=== PATIENT | male | born 1965 | race Caucasian/White ===

== ENCOUNTER → 2017-01-08 | Outpatient (CLI) | payer MEDICAID ==
[~2017-01-08] MED LIST: ASPI81TA11 PO; COLA100C PO; HYDR25TA5 PO; LISI10TA3 PO; METF1000 PO; NOVO7030P2 SQ; PERC5TAB12 PO; SPIR25TA PO
[2017-01-08 12:29] LABS: AUTOMATED NEUTROPHIL # 5.9 TH/MM3 (1.8-7.7); BASOPHIL % 0.5 % (0.0-2.0); EOSINOPHIL # 0.2 TH/MM3 (0-0.4); EOSINOPHIL % 3.1 % (0.0-4.0); HEMO FLAGS DIFF FINAL; LYMPH % 14.4 % (9.0-44.0); LYMPHOCYTE # 1.1 TH/MM3 (1.0-4.8); MEAN CELL VOLUME 83.5 FL (80.0-100.0); MEAN CORPUSCULAR HEMOGLOBIN 27.4 PG (27.0-34.0); MEAN CORPUSCULAR HGB CONC 32.9 % (32.0-36.0); MONO % 5.6 % (0.0-8.0); NEUT % 76.4 % (16.0-70.0); PLATELET COUNT 186 TH/MM3 (150-450); RED BLOOD COUNT 5.03 MIL/MM3 (4.50-5.90); RED CELL DISTRIBUTION WIDTH 15.7 % (11.6-17.2); WHITE BLOOD COUNT 7.7 TH/MM3 (4.0-11.0)
[2017-01-08 12:35] LABS: APTT (PATIENT) 25.9 SEC (24.3-30.1); PROTHROMBIN TIME - PATIENT 11.1 SEC (9.8-11.6)
[2017-01-08 12:49] LABS: ANION GAP 8 MEQ/L (5-15); AST (GOT) 36 U/L (15-37); BICARBONATE 26.9 MEQ/L (21.0-32.0); BLOOD UREA NITROGEN 17 MG/DL (7-18); CHLORIDE 99 MEQ/L (98-107); GLOMERULAR FILTRATION RATE 66 ML/MIN (>89); GLUCOSE,FASTING 257 MG/DL (74-99); POTASSIUM 4.4 MEQ/L (3.5-5.1); SODIUM (NA) 134 MEQ/L (136-145)
[2017-01-08 12:50] LABS: ALT (GPT) 84 U/L (12-78)
[2017-01-08 12:53] LABS: ALKALINE PHOSPHATASE 131 U/L (45-117); TOTAL BILIRUBIN ADULT 0.5 MG/DL (0.2-1.0)
== END ==
LOC: CPRE 11:27
PROVIDERS: ATTEND Urology
DX: Z01.810 Encounter for preprocedural cardiovascular examination (principal); Z01.812 Encounter for preprocedural laboratory examination; C64.1 Malignant neoplasm of right kidney, except renal pelvis
CPT/HCPCS: 36415; 80053; 85025; 85610; 85730

== ENCOUNTER 2017-01-15 10:39 | Inpatient (IN) | payer MEDICAID ==
[~2017-01-15] VITALS: Ht 172.7 cm; Wt 134.4 kg
[~2017-01-15 10:39] MED LIST changes: -COLA100C PO; -NOVO7030P2 SQ; -PERC5TAB12 PO
[2017-01-15] MEDS ORDERED: NOVO7030P2 SQ (11:20)
[2017-01-15] MEDS ORDERED: SODIUM CHLORID 0.9% 500 ML IV PRN (11:30)
[2017-01-15] MEDS ORDERED: POVIDONE IODINE 5% (ANTISEPSIS KIT) 4 APPLICATIONS EACH NARE PRN (11:30)
[2017-01-15] MEDS ORDERED: CHLORHEXIDINE GLUCONATE 2 % 1 PACK (2 CLOTHS) TOPICAL PRN (11:30)
[2017-01-15] MEDS ORDERED: ceFAZolin 2 GM PREMIX 50 ML IV SCH (11:30)
[2017-01-15] MEDS ORDERED: INSULIN HUMAN REGULAR 1,000 UNITS/10 ML VIAL SQ PRN (11:30)
[2017-01-15] MEDS ORDERED: METOPROLOL TARTRATE 25 MG TAB PO PRN (11:30)
[2017-01-15] MEDS ORDERED: LACTATED RINGER'S 1000 ML IV PRN (11:30)
[2017-01-15] MEDS ORDERED: VECURONIUM BROMIDE 20 MG VIAL IV ONE (12:00)
[2017-01-15] MEDS ORDERED: LIDOCAINE HCL 1% PF 5 ML AMPULE OTHER ONE (12:00)
[2017-01-15] MEDS ORDERED: NORMOSOL R INJ 2,000 ML IV ONE (12:00)
[2017-01-15] MEDS ORDERED: ROCURONIUM INJ 50 MG/5 ML SYRINGE IV PUSH ONE (12:00)
[2017-01-15] MEDS ORDERED: DEXAMETHASONE SOD PHOS 4 MG/ML VIAL IV ONE (12:00)
[2017-01-15] MEDS ORDERED: SODIUM CHLORID 0.9% 500 ML INJ 500 ML IV ONE (12:00)
[2017-01-15] MEDS ORDERED: MIDAZOLAM HCL 2 MG/2 ML VIAL IV ONE (12:00)
[2017-01-15] MEDS ORDERED: LACTATED RINGER'S 1000 ML INJ 1,000 ML IV ONE (12:00)
[2017-01-15] MEDS ORDERED: STERILE WATER FOR INJECTION 20 ML VIAL IV ONE (12:00)
[2017-01-15] MEDS ORDERED: PHENYLEPH/NS 1000 MCG/10 ML SYR IV ONE (12:00)
[2017-01-15] MEDS ORDERED: SODIUM CHLOR 0.9% 250 ML INJ 500 ML IV ONE (12:00)
[2017-01-15] MEDS ORDERED: PROPOFOL 200 MG/20 ML AMP IV ONE (12:00)
[2017-01-15] MEDS ORDERED: FUROSEMIDE 40 MG/4 ML VIAL ONE (12:23)
[2017-01-15] MEDS ORDERED: ceFAZolin INJ 1,000 MG VIAL ONE (13:40)
[2017-01-15] MEDS ORDERED: VECURONIUM BROMIDE 20 MG VIAL ONE (18:24)
[2017-01-15] MEDS ORDERED: PHENYLEPHRINE HCL 10 MG/ML VIAL ONE (18:25)
[2017-01-15] MEDS ORDERED: SUGAMMADEX SODIUM 200 MG/2 ML VIAL IV PUSH ONE ×2 (19:00)
[2017-01-15 19:10] LABS: BLOOD GAS BASE EXCESS -4.4 mmol/L (-2-2); BLOOD GAS HCO3 22 mmol/L (22-26); BLOOD GAS METHEMOGLOBIN 1.5 % (0-2); BLOOD GAS O2 HGB SATURATION 92 % (90-100); BLOOD GAS OXYGEN CONTENT 16.4 Vol % (12.0-20.0); BLOOD GAS PCO2 54 mmHg (38-42); BLOOD GAS PO2 94 mmHg (61-120); BLOOD GAS TOTAL HGB 12.6 G/DL (12.0-16.0); CRITICAL VALUE YES; DRAW SITE ART LINE; FIO2 50 %; OXYGEN DEVICE VENTILATOR; STAT NO; TEMP CORR TO 98.6; VENT SETTINGS IN OR
[2017-01-15 19:18] LABS: BASOPHIL # 0.1 TH/MM3 (0-0.2); BASOPHIL % 0.5 % (0.0-2.0); EOSINOPHIL # 0.1 TH/MM3 (0-0.4); EOSINOPHIL % 0.4 % (0.0-4.0); HEMATOCRIT 38.3 % (39.0-51.0); HEMO FLAGS DIFF FINAL; LYMPH % 10.9 % (9.0-44.0); LYMPHOCYTE # 2.5 TH/MM3 (1.0-4.8); MEAN CELL VOLUME 84.8 FL (80.0-100.0); MEAN CORPUSCULAR HEMOGLOBIN 27.4 PG (27.0-34.0); MEAN CORPUSCULAR HGB CONC 32.3 % (32.0-36.0); NEUT % 86.2 % (16.0-70.0); PLATELET COUNT 349 TH/MM3 (150-450); RED BLOOD COUNT 4.52 MIL/MM3 (4.50-5.90); RED CELL DISTRIBUTION WIDTH 15.5 % (11.6-17.2); WHITE BLOOD COUNT 23.2 TH/MM3 (4.0-11.0)
[2017-01-15 20:22] LABS: BLOOD GAS CARBOXYHEMOGLOBIN 2.2 % (0-4); BLOOD GAS HCO3 19 mmol/L (22-26); BLOOD GAS METHEMOGLOBIN 1.6 % (0-2); BLOOD GAS O2 HGB SATURATION 93 % (90-100); BLOOD GAS OXYGEN CONTENT 17.4 Vol % (12.0-20.0); BLOOD GAS PCO2 45 mmHg (38-42); BLOOD GAS PO2 106 mmHg (61-120); BLOOD GAS TOTAL HGB 13.2 G/DL (12.0-16.0); TEMP CORR TO 98.6
[2017-01-15 20:23] LABS: CRITICAL VALUE YES; DRAW SITE ART LINE; FIO2 50 %; OXYGEN DEVICE VENTILATOR; STAT YES; VENT SETTINGS PER ANESTHESIA
[2017-01-15] MEDS ORDERED: ALBUMIN HUMAN 5% 12.5 GM/250 ML BOTTLE IV ONE (20:25)
[2017-01-15] MEDS: SODIUM CHLOR 0.9% 1000 ML INJ 1,000 ML IV SCH (21:09)
--- NOTE | 2017-01-15 21:09 | PD.OP ---
Operative Report Date of Surgery: Jan 15, 2017 Preoperative Diagnosis: (1) Renal cell carcinoma of right kidney Postoperative Diagnosis: (1) Renal cell carcinoma of right kidney Procedure: Robot-assisted laparoscopic right radical nephrectomy Anesthesia: General Surgeon: Chester Downey Raise Drill Operator(s): Oc Ortega Operation and Findings: Indication for procedure: The case of a pleasant 51-year-old gentleman with a 5 cm renal mass biopsy-proven to be renal cell carcinoma who presents now to undergo a robot-assisted laparoscopic right radical nephrectomy. Operative procedure in detail: Patient was brought to the operating suite and placed supine on the OR table. He was then placed and general endotracheal anesthesia. He was then repositioned in the left lateral recumbent position and the table was flexed to separate the pelvis from the thorax. The beanbag was then utilized to hold the patient in this position. All pressure points were adequately padded. He was then prepped and draped in normal sterile fashion. After appropriate timeout was undertaken I proceeded with creating a pneumoperitoneum to 15 mmHg pressure utilizing the the Veress needle in standard fashion. I then utilized the visual obturator to place the camera port which was just lateral to the midline due to patient's body habitus. The remaining 3 robotic arm ports, the speech language assistant port and a small liver retractor port were then placed under direct vision. The robot was then docked in standard fashion. At this point time I repositioned myself over at the da Stefanie console and Dr. Ortega remained at the bedside to baking assistant. I then proceeded to mobilize the patient's right colon to expose the retroperitoneum. The inferior pole of the kidney was freed and I continued my dissection in a cephalad direction until the hilar vessels were identified. The hilar vessels with next divided and ligated utilizing the endovascular stapling device. I then utilized the vessel sealer to further mobilize the kidney from its superior lateral attachments. Once the kidney was fully mobilized it was placed in the Endo Catch specimen bag. The pneumoperitoneum was dropped down to 5 mmHg and inspection was made fracture bleeding and none was noted. A 7 mm NATACHA drain was placed to one of the robotic arm ports and the robot was undocked and the remaining ports removed. I re-scrubbed and repositioned myself over at the bedside to complete the case. I next connected the camera port and the speech language assistant port to create one incision and the specimen was removed via this incision. This incision was then closed in 2 layers utilizing #1 PDS suture followed by subcuticular 3-0 chromic and reapproximation of the skin edges with a skin stapling device. The staple device was also utilized to close the remaining to robotic arm ports and the 5 mm liver retraction port site. The NATACHA drain was secured in place with a suture. Sterile dressings were placed over all wound sites. The patient tolerated the procedure without complications post transfer to the PACU in satisfactory condition. Chester Downey MD Jan 15, 2017 21:09
[2017-01-15] MEDS ORDERED: NALOXONE HCL 0.4 MG/ML AMP IV PUSH PRN ×2 (21:15)
[2017-01-15] MEDS ORDERED: SODIUM CHLORIDE 0.9% FLUSH 10 ML FLUSH IV FLUSH PRN (21:15)
[2017-01-15] MEDS: SODIUM CHLORIDE 0.9% FLUSH 10 ML FLUSH IV FLUSH SCH (21:15)
[2017-01-15] MEDS ORDERED: ONDANSETRON HCL 4 MG/2 ML VIAL IV PUSH PRN (21:15)
[2017-01-15] MEDS ORDERED: Post-op Orders (for Pharmacy) MISC XX ONE (21:15)
[2017-01-15] MEDS ORDERED: RESP: ALBUTEROL 2.5 MG/3 ML NEB (SCH) ONE (21:26)
[2017-01-15 21:51] LABS: BLOOD GAS BASE EXCESS -6.5 mmol/L (-2-2); BLOOD GAS CARBOXYHEMOGLOBIN 2.2 % (0-4); BLOOD GAS HCO3 19 mmol/L (22-26); BLOOD GAS METHEMOGLOBIN 1.6 % (0-2); BLOOD GAS O2 HGB SATURATION 90 % (90-100); BLOOD GAS OXYGEN CONTENT 14.1 Vol % (12.0-20.0); BLOOD GAS PCO2 37 mmHg (38-42); BLOOD GAS PO2 77 mmHg (61-120); BLOOD GAS TOTAL HGB 11.1 G/DL (12.0-16.0); CRITICAL VALUE NO; DRAW SITE ART LINE; LITER FLOW 10 L/M; OXYGEN DEVICE SIMPLE MASK; STAT YES; TEMP CORR TO 98.6
[2017-01-15] MEDS: PCA - TOTAL MG DILAUDID DELIVERED PER SHIFT OTHER SCH (22:00)
[2017-01-15 22:10] VITALS: O2SAT 97
[2017-01-15] MEDS ORDERED: DO NOT ADM ANY ANTICOAGULANT DRUGS PRN (22:15)
[2017-01-15] MEDS ORDERED: SODIUM CHLOR 0.9% 1000 ML INJ 1,000 ML IV ONE ×2 (22:30→23:30)
[2017-01-15] MEDS ORDERED: TETRACAINE 0.5% OPTH SOLN 2 ML BTL ONE (22:59)
[2017-01-15] MEDS ORDERED: *morphine SULFATE 8 MG/ML PERIprocedure ONLY ONE (23:09)
[2017-01-15] MEDS ORDERED: TETRACAINE 0.5% OPTH SOLN 4 ML BTL LEFT EYE ONE (23:15)
[2017-01-15] MEDS: HYDROmorphone HCL PCA 6 MG/30 ML IV SCH (23:16)
[2017-01-16] VITALS (14 sets, daily range): BP systolic 103–111; BP diastolic 56–70; PULSE 80–98; RESP 15–21; TEMP 97.2–98.3; O2SAT 94–98
[2017-01-16] MEDS ORDERED: SODIUM CHLOR 0.9% 1000 ML INJ 1,000 ML IV ONE (01:15)
[2017-01-16] MEDS ORDERED: DEXTROSE 50% IN WATER 50 ML VIAL(D50) IV PUSH PRN (02:00)
[2017-01-16] MEDS ORDERED: GLUCAGON 1 MG/ML VIAL OTHER PRN (02:00)
--- NOTE | 2017-01-16 02:08 | PD.CONS ---
HPI Service Critical Care Medicine Consult Requested By Primary Care Physician Maci Redman MD History of Present Illness 51-year-old gentleman with history of diabetes type 2, hypertension, recently diagnosed with a renal mass confirming renal carcinoma, underwent robotic- assisted nephrectomy. Postoperatively in the PACU he was noticed to be hypotensive and is admitted to critical care unit. Review of Systems Constitutional: DENIES: Diaphoretic episodes, Fatigue, Fever, Weight gain, Weight loss, Chills, Dizziness, Change in appetite, Night Sweats Endocrine: DENIES: Heat/cold intolerance, Polydipsia, Polyuria, Polyphagia Eyes: DENIES: Blurred vision, Diplopia, Eye inflammation, Eye pain, Vision loss , Photosensitivity, Double Vision Ears, nose, mouth, throat: DENIES: Tinnitus, Hearing loss, Vertigo, Nasal discharge, Oral lesions, Throat pain, Hoarseness, Ear Pain, Running Nose, Epistaxis, Sinus Pain, Toothache, Odynophagia Respiratory: DENIES: Apneas, Cough, Snoring, Wheezing, Hemoptysis, Sputum production, Shortness of breath Cardiovascular: DENIES: Chest pain, Palpitations, Syncope, Dyspnea on Exertion , PND, Lower Extremity Edema, Orthopnea, Claudication Gastrointestinal: DENIES: Abdominal pain, Black stools, Bloody stools, Constipation, Diarrhea, Nausea, Vomiting, Difficulty Swallowing, Anorexia Genitourinary: DENIES: Sexual dysfunction, Urinary frequency, Urinary incontinence, Urgency, Hematuria, Dysuria, Nocturia, Penile Discharge, Testicular Pain, Testicular Swelling Musculoskeletal: DENIES: Joint pain, Muscle aches, Stiffness, Joint Swelling, Back pain, Neck pain Integumentary: DENIES: Abnormal pigmentation, Nail changes, Pruritus, Rash Hematologic/lymphatic: DENIES: Bruising, Lymphadenopathy Immunologic/allergic: DENIES: Eczema, Urticaria Neurologic: DENIES: Abnormal gait, Headache, Localized weakness, Paresthesias, Seizures, Speech Problems, Tremor, Poor Balance Psychiatric: DENIES: Anxiety, Confusion, Mood changes, Depression, Hallucinations, Agitation, Suicidal Ideation, Homicidal Ideation, Delusions Past Family Social History Allergies: Coded Allergies: No Known Allergies (Unverified , 12/05/16) Past Medical History Hypertension Diabetes mellitus Reported Medications Reported Meds & Active Scripts Active Reported Novolin 70-30 Inj (Insulin Human Isoph/Insulin Regular) 1,000 Unit/10 Ml Vial SQ Aspirin EC (Aspirin) 81 Mg Tabdr 81 Mg PO DAILY Spironolactone 25 Mg Tab 25 Mg PO DAILY Hydrochlorothiazide 25 Mg Tab 25 Mg PO DAILY Lisinopril 10 Mg Tab 10 Mg PO DAILY Metformin (Metformin HCl) 1,000 Mg Tab 1,000 Mg PO BIDPC With meals Active Ordered Medications Current Medications Medications (Trade) Dose Ordered Sig/Penny Route PRN Reason Start Time Stop Time Status Last Admin Dose Admin Sodium Chloride 1,000 ml @ 125 mls/hr Q8H IV 01/15/17 21:09 01/15/17 21:09 Sodium Chloride (NS Flush) 2 ml UNSCH PRN IV FLUSH FLUSH AFTER USING IV ACCESS 01/15/17 21:15 Sodium Chloride (NS Flush) 2 ml BID IV FLUSH 01/15/17 21:15 01/15/17 21:15 Ondansetron HCl (Zofran Inj) 4 mg Q6H PRN IV PUSH NAUSEA 01/15/17 21:15 Cefazolin Sodium 1000 mg/Sodium Chloride 100 ml @ 200 mls/hr Q8H IV 01/16/17 00:00 01/16/17 16:29 01/16/17 00:00 Heparin Sodium (Porcine) (Heparin Inj) 5,000 units Q12H SQ 01/16/17 20:00 Naloxone HCl (Narcan Inj) 0.4 mg UNSCH PRN IV PUSH RESPIRATORY RATE LESS THAN 10 01/15/17 21:15 Hydromorphone HCl (Dilaudid MUTUEL CLERK Inj) 6 mg UNSCH IV 01/15/17 21:15 01/16/17 02:50 MUTUEL CLERK Dosage Infused (Pha) 1 Q8HR OTHER 01/15/17 22:00 Miscellaneous Information ALL NURSING DEPARTME... UNSCH PRN .XX SEE LABEL COMMENTS 01/15/17 22:15 01/16/17 22:14 Dextrose (D50w (Vial) Inj) 50 ml UNSCH PRN IV PUSH HYPOGLYCEMIA-SEE COMMENTS 01/16/17 02:00 Glucagon (Glucagon Inj) 1 mg UNSCH PRN OTHER HYPOGLYCEMIA-SEE COMMENTS 01/16/17 02:00 Insulin Aspart (NovoLOG SUPPLEMENTAL SCALE) 1 ACHS SLIDING SCALE SQ 01/16/17 08:00 Family History No family history significant for coronary artery disease Social History Negative for alcohol or illicit drug abuse Physical Exam Vital Signs Vital Signs Date Time Temp Pulse Resp B/P (MAP) Pulse Ox O2 Delivery O2 Flow Rate FiO2 01/15/17 23:45 88 16 93/52 (66) 95 Nasal Cannula 4 99/68 (78) 01/15/17 23:30 89 19 97/56 (70) 95 Simple Mask 10 99/53 (68) 01/15/17 23:16 19 01/15/17 23:15 83 20 83/47 (59) 95 Simple Mask 10 69/50 (56) 01/15/17 23:00 86 21 87/89 (88) 100 Bi-Pap 50 99/49 (66) 01/15/17 22:45 91 20 95/55 (68) 98 Bi-Pap 50 73/66 (68) 01/15/17 22:30 90 19 94/54 (67) 100 Bi-Pap 50 85/61 (69) 01/15/17 22:15 87 20 93/52 (66) 100 Bi-Pap 50 88/47 (61) 01/15/17 22:10 97 50 01/15/17 22:00 90 15 88/50 (63) 95 Bi-Pap 50 69/58 (62) 01/15/17 21:45 89 21 95/46 (62) 97 Bi-Pap 50 77/44 (55) 01/15/17 21:26 99.3 91 16 86/44 (58) 92 Simple Mask 10 01/15/17 11:28 97.8 77 20 120/87 (98) 96 Physical Exam GENERAL: Well-nourished, well-developed patient. SKIN: Warm and dry. HEAD: Normocephalic. EYES: No scleral icterus. No injection or drainage. Corneal abrasion with a patch on left NECK: Supple, trachea midline. No JVD or lymphadenopathy. CARDIOVASCULAR: Regular rate and rhythm without murmurs, gallops, or rubs. RESPIRATORY: Breath sounds equal bilaterally. No accessory muscle use. GASTROINTESTINAL: Abdomen soft, non-tender, nondistended. MUSCULOSKELETAL: No cyanosis, or edema. BACK: Nontender without obvious deformity. NEURO EXAM: GCS: M V E Mental Status: The patient is alert and oriented to person, place, and time with normal speech. Cranial Nerves: Pupil on the right is round, reactive to light. Extraocular movements are intact without ptosis. Reflexes: Biceps, patellar, and Achilles are 2/4 bilaterally. No clonus. Sensation: Sensation is intact bilaterally to pain and light touch. Two-point discrimination is intact. Motor: Good muscle tone. Strength is 5/5 bilaterally. Laboratory Laboratory Tests Test 01/15/17 18:56 01/15/17 19:55 01/15/17 21:35 White Blood Count 23.2 Red Blood Count 4.52 Hemoglobin 12.4 Hematocrit 38.3 Mean Corpuscular Volume 84.8 Mean Corpuscular Hemoglobin 27.4 Mean Corpuscular Hemoglobin Concent 32.3 Red Cell Distribution Width 15.5 Platelet Count 349 Mean Platelet Volume 9.1 Neutrophils (%) (Auto) 86.2 Lymphocytes (%) (Auto) 10.9 Monocytes (%) (Auto) 2.0 Eosinophils (%) (Auto) 0.4 Basophils (%) (Auto) 0.5 Neutrophils # (Auto) 20.0 Lymphocytes # (Auto) 2.5 Monocytes # (Auto) 0.5 Eosinophils # (Auto) 0.1 Basophils # (Auto) 0.1 CBC Comment DIFF FINAL Differential Comment Blood Gas Puncture Site ART LINE ART LINE ART LINE Blood Gas Patient Temperature 98.6 98.6 98.6 Blood Gas HCO3 22 19 19 Blood Gas Base Excess -4.4 -7.0 -6.5 Blood Gas Oxygen Saturation 92 93 90 Arterial Blood pH 7.23 7.25 7.32 Arterial Blood Partial Pressure CO2 54 45 37 Arterial Blood Partial Pressure O2 94 106 77 Arterial Blood Oxygen Content 16.4 17.4 14.1 Arterial Blood Carboxyhemoglobin 2.0 2.2 2.2 Arterial Blood Methemoglobin 1.5 1.6 1.6 Blood Gas Hemoglobin 12.6 13.2 11.1 Oxygen Delivery Device VENTILATOR VENTILATOR SIMPLE MASK Blood Gas Ventilator Setting IN OR PER ANESTHESIA Blood Gas Inspired Oxygen 50 50 Blood Gas Liter Flow 10 Result Diagram: 01/15/17 3979 Assessment and Plan Assessment and Plan Renal cell carcinoma - Status post nephrectomy - Further per urology Hypertension - Hypotensive postop - Hold home meds lisinopril, hydrochlorothiazide, spironolactone Hypotension - Postoperatively - H&H stable - Improved with and his boluses Diabetes mellitus - Hold metformin while in the ICU - Insulin sliding scale DVT GI prophylaxis - Teds SCDs - Subcutaneous heparin - Pepcid Critical Care: The total critical care time was 35 minutes. Time to perform other separately billable procedures was not included in the critical care time. Chago Salcido MD Jan 16, 2017 2:08 am
[2017-01-16] MEDS ORDERED: SODIUM BICARBONATE 8.4% INJ 50 MEQ/50 ML SYR IV PUSH ONE (02:15)
[2017-01-16] MEDS ORDERED: INSULIN ASPART SUPPLEMENTAL SCALE ONE (02:28)
[2017-01-16] MEDS: INSULIN ASPART SUPPLEMENTAL SCALE SQ SCH ×5 (02:31→21:00)
[2017-01-16] MEDS: HYDROmorphone HCL PCA 6 MG/30 ML IV SCH ×2 (02:50→13:01)
[2017-01-16] MEDS ORDERED: INSULIN ASPART 1,000 UNITS/10 ML VIAL SQ ONE (03:15)
[2017-01-16 04:10] LABS: AUTOMATED NEUTROPHIL # 11.8 TH/MM3 (1.8-7.7); BASOPHIL % 0.2 % (0.0-2.0); EOSINOPHIL % 0.1 % (0.0-4.0); HEMATOCRIT 31.5 % (39.0-51.0); HEMO FLAGS DIFF FINAL; LYMPH % 5.5 % (9.0-44.0); LYMPHOCYTE # 0.7 TH/MM3 (1.0-4.8); MEAN CELL VOLUME 84.6 FL (80.0-100.0); MEAN CORPUSCULAR HEMOGLOBIN 27.4 PG (27.0-34.0); MEAN CORPUSCULAR HGB CONC 32.4 % (32.0-36.0); MONO % 5.5 % (0.0-8.0); NEUT % 88.7 % (16.0-70.0); PLATELET COUNT 171 TH/MM3 (150-450); RED BLOOD COUNT 3.72 MIL/MM3 (4.50-5.90); RED CELL DISTRIBUTION WIDTH 15.3 % (11.6-17.2); WHITE BLOOD COUNT 13.3 TH/MM3 (4.0-11.0)
[2017-01-16 05:08] LABS: BICARBONATE 23.9 MEQ/L (21.0-32.0); MAGNESIUM 1.5 MG/DL (1.5-2.5); POTASSIUM 5.2 MEQ/L (3.5-5.1); TOTAL BILIRUBIN ADULT 0.7 MG/DL (0.2-1.0)
[2017-01-16] MEDS: SODIUM CHLOR 0.9% 1000 ML INJ 1,000 ML IV SCH ×3 (05:09→21:00)
[2017-01-16 05:13] LABS: CALCIUM-PROTEIN CORRECTED 7.3 MG/DL (8.5-10.1)
[2017-01-16] MEDS: PCA - TOTAL MG DILAUDID DELIVERED PER SHIFT OTHER SCH ×3 (06:00→21:01)
[2017-01-16] MEDS: SODIUM CHLORIDE 0.9% FLUSH 10 ML FLUSH IV FLUSH SCH ×2 (09:00→20:58)
--- NOTE | 2017-01-16 09:43 | HHI.PR ---
Subjective Patient symptoms today Postoperative day #1 Resting comfortably Feels hungry Denies flatus or bowel movement Anxious to get out of bed Pain well managed Objective Vital Signs Vital Signs Date Time Temp Pulse Resp B/P (MAP) Pulse Ox O2 Delivery O2 Flow Rate FiO2 01/16/17 06:30 97.5 82 20 103/70 (81) 94 01/16/17 06:00 97.8 77 12 116/56 (76) 94 Nasal Cannula 2 01/16/17 05:00 79 11 108/67 (81) 94 Nasal Cannula 2 01/16/17 04:00 82 16 101/57 (72) 94 Nasal Cannula 2 01/16/17 03:30 80 25 93/51 (65) 99 Nasal Cannula 2 Arterial Line 01/16/17 03:15 76 11 102/56 (71) 97 Nasal Cannula 2 Arterial Line 01/16/17 03:00 80 19 103/58 (73) 95 Nasal Cannula 2 91/63 (72) 01/16/17 02:50 16 01/16/17 02:45 80 19 103/58 (73) 95 Nasal Cannula 2 85/61 (69) 01/16/17 02:30 79 18 94/54 (67) 95 Nasal Cannula 2 87/62 (70) 01/16/17 02:15 79 21 94/52 (66) 94 Nasal Cannula 2 75/63 (67) 01/16/17 02:00 82 14 102/56 (71) 94 Nasal Cannula 2 94/65 (75) 01/16/17 01:45 84 13 97/52 (67) 92 Nasal Cannula 2 98/71 (80) 01/16/17 01:30 83 13 101/55 (70) 92 Nasal Cannula 2 86/66 (73) 01/16/17 01:15 81 14 102/56 (71) 98 Nasal Cannula 2 93/67 (76) 01/16/17 01:00 83 16 104/58 (73) 98 Nasal Cannula 4 97/71 (80) 01/16/17 00:45 82 18 111/55 (73) 96 Nasal Cannula 4 92/67 (75) 01/16/17 00:30 84 19 109/59 (76) 98 Nasal Cannula 4 101/85 (90) 01/16/17 00:15 85 14 105/55 (72) 97 Nasal Cannula 4 95/67 (76) 01/16/17 00:00 87 18 98/56 (70) 95 Nasal Cannula 4 97/69 (78) 01/15/17 23:45 88 16 93/52 (66) 95 Nasal Cannula 4 99/68 (78) 01/15/17 23:30 89 19 97/56 (70) 95 Simple Mask 10 99/53 (68) 01/15/17 23:16 19 01/15/17 23:15 83 20 83/47 (59) 95 Simple Mask 10 69/50 (56) 01/15/17 23:00 86 21 87/89 (88) 100 Bi-Pap 50 99/49 (66) 01/15/17 22:45 91 20 95/55 (68) 98 Bi-Pap 50 73/66 (68) 01/15/17 22:30 90 19 94/54 (67) 100 Bi-Pap 50 85/61 (69) 01/15/17 22:15 87 20 93/52 (66) 100 Bi-Pap 50 88/47 (61) 01/15/17 22:10 97 50 01/15/17 22:00 90 15 88/50 (63) 95 Bi-Pap 50 69/58 (62) 01/15/17 21:45 89 21 95/46 (62) 97 Bi-Pap 50 77/44 (55) 01/15/17 21:26 99.3 91 16 86/44 (58) 92 Simple Mask 10 01/15/17 11:28 97.8 77 20 120/87 (98) 96 Intake & Output 01/16/17 01/16/17 07:00 19:00 Intake Total 8707.1 ml Output Total 2180 ml Balance 6527.1 ml Intake Oral 0 ml IV Total 4207.1 ml Other 4500 ml Output Urine Total 1050 ml Stool Total 0 ml Drainage Total 130 ml Estimated Blood Loss 1000 ml Result Diagram: 01/16/17 0400 01/16/17 0400 Objective Remarks Abdomen soft, nondistended, nontender Wound sites clean and dry NATACHA with small amount serosanguineous drainage Extremities well-perfused, nontender Medications and IVs Current Medications Medications (Trade) Dose Ordered Sig/Penny Route Start Time Stop Time Status Last Admin Sodium Chloride 1,000 ml @ 125 mls/hr Q8H IV 01/15/17 21:09 01/16/17 05:09 (NS Flush) 2 ml UNSCH PRN IV FLUSH 01/15/17 21:15 (NS Flush) 2 ml BID IV FLUSH 01/15/17 21:15 01/15/17 21:15 (Zofran Inj) 4 mg Q6H PRN IV PUSH 01/15/17 21:15 Cefazolin Sodium 1000 mg/Sodium Chloride 100 ml @ 200 mls/hr Q8H IV 01/16/17 00:00 01/16/17 16:29 01/16/17 00:00 (Heparin Inj) 5,000 units Q12H SQ 01/16/17 20:00 (Narcan Inj) 0.4 mg UNSCH PRN IV PUSH 01/15/17 21:15 (Dilaudid HINGING MACHINE OPERATOR Inj) 6 mg UNSCH IV 01/15/17 21:15 01/16/17 02:50 HINGING MACHINE OPERATOR Dosage Infused (Pha) 1 Q8HR OTHER 01/15/17 22:00 Miscellaneous Information ALL NURSING DEPARTME... UNSCH PRN .XX 01/15/17 22:15 01/16/17 22:14 (D50w (Vial) Inj) 50 ml UNSCH PRN IV PUSH 01/16/17 02:00 (Glucagon Inj) 1 mg UNSCH PRN OTHER 01/16/17 02:00 (NovoLOG SUPPLEMENTAL SCALE) 1 ACHS SLIDING SCALE SQ 01/16/17 08:00 Assessment and Plan Assessment and Plan Urologic impression: #1 status post robot-assisted laparoscopic radical nephrectomy #2 hemodynamically stable #3 appreciate assistance from institutional custodian Plan: #1 continue with ICU care and transfer to surgical floor when okay with institutional custodian #2 clear liquid diet #3 out of bed #4 attempt to wean off HINGING MACHINE OPERATOR #5 continue with Iraheta to gravity drainage #6 continue with NATACHA drain #7 check pathology when available Chester Downey MD Jan 16, 2017 09:43
[2017-01-16] MEDS: oxyCODONE/ACETAMINOPHEN 5 MG/325 MG TAB PO PRN ×2 (12:36→20:58)
[2017-01-16] MEDS: HEPARIN SODIUM - SQ 10,000 UNITS/ML VIAL SQ SCH (20:57)
[2017-01-17] VITALS (8 sets, daily range): BP systolic 103–124; BP diastolic 56–75; PULSE 94–108; RESP 17–20; TEMP 97.2–98.6; O2SAT 92–99
[2017-01-17] MEDS: oxyCODONE/ACETAMINOPHEN 5 MG/325 MG TAB PO PRN ×5 (03:39→23:24)
[2017-01-17] MEDS: SODIUM CHLOR 0.9% 1000 ML INJ 1,000 ML IV SCH (05:09)
[2017-01-17] MEDS: HYDROmorphone HCL PCA 6 MG/30 ML IV SCH (05:25)
[2017-01-17] MEDS: PCA - TOTAL MG DILAUDID DELIVERED PER SHIFT OTHER SCH (05:30)
[2017-01-17] MEDS: INSULIN ASPART SUPPLEMENTAL SCALE SQ SCH ×4 (08:00→21:00)
[2017-01-17] MEDS: HEPARIN SODIUM - SQ 10,000 UNITS/ML VIAL SQ SCH (08:12)
[2017-01-17] MEDS: SODIUM CHLORIDE 0.9% FLUSH 10 ML FLUSH IV FLUSH SCH ×2 (08:13→21:00)
--- NOTE | 2017-01-17 11:18 | HHI.CCPN ---
Subjective Remarks/Hospital Course 51-year-old gentleman with history of diabetes type 2, hypertension, recently diagnosed with a renal mass confirming renal carcinoma, underwent robotic- assisted nephrectomy. Postoperatively in the PACU he was noticed to be hypotensive and is admitted to critical care unit. Subjective: 01/17: No acute events overnight. The patient continues on IV ORCHID WORKER Dilaudid. The patient's activity level has been advanced out of bed with assistance, currently ambulating around the ICU. Patient's pain well controlled with VAS 4/ 10. Objective Vital Signs Date Time Temp Pulse Resp B/P (MAP) Pulse Ox O2 Delivery O2 Flow Rate FiO2 01/17/17 08:00 98.3 108 20 114/58 (76) 96 01/17/17 07:00 Room Air 01/16/17 19:00 2.00 01/15/17 23:00 50 Result Diagram: 01/16/1739901/16/17399 Objective Remarks GENERAL: Well-nourished, well-developed patient, in no acute distress. SKIN: Warm and dry. HEAD: Normocephalic. EYES: No scleral icterus. No injection or drainage. Corneal abrasion with a patch on left NECK: Supple, trachea midline. No JVD or lymphadenopathy. CARDIOVASCULAR: Regular rate and rhythm without murmurs, gallops, or rubs. RESPIRATORY: Breath sounds equal bilaterally. No accessory muscle use. GASTROINTESTINAL: Abdomen soft, obese non-tender, nondistended. NATACHA drain right minimal serosanguineous fluid to thumb print suction. Normoactive bowel sounds. Midline abdominal dressing clean dry and intact MUSCULOSKELETAL: No cyanosis, or edema. BACK: Nontender without obvious deformity. NEURO EXAM: GCS: M6 V5 E4 Mental Status: The patient is alert and oriented to person, place, and time with normal speech. Cranial Nerves: Pupil on the right is round, reactive to light. Extraocular movements are intact without ptosis. Reflexes: Biceps, patellar, and Achilles are 2/4 bilaterally. No clonus. Sensation: Sensation is intact bilaterally to pain and light touch. Two-point discrimination is intact. Motor: Good muscle tone. Strength is 5/5 bilaterally. A/P Assessment and Plan Renal cell carcinoma - Status post nephrectomy - Further per urology Hypertension - Hypotensive postop - Hold home meds lisinopril, hydrochlorothiazide, spironolactone Hypotension-resolved - Postoperatively - H&H stable - Improved with and his boluses Diabetes mellitus - Hold metformin while in the ICU - Insulin sliding scale-high dose DVT GI prophylaxis - Teds SCDs - Subcutaneous heparin - Pepcid Dispo: Level 3 Thank you for allowing participation in the care of this patient. Critical care medicine will sign off. Physician Echo Dockery MD Jan 17, 2017 11:18
--- NOTE | 2017-01-17 13:00 | HHI.PR ---
Subjective Patient symptoms today Postoperative day #2 Denies complaints other than being hungry Voiding well Had 3 loose bowel movements Ambulating well Objective Vital Signs Vital Signs Date Time Temp Pulse Resp B/P (MAP) Pulse Ox O2 Delivery O2 Flow Rate FiO2 01/17/17 08:00 98.3 108 20 114/58 (76) 96 01/17/17 08:00 108 01/17/17 07:00 96 Room Air 01/17/17 06:00 102 01/17/17 05:30 18 01/17/17 05:25 18 01/17/17 04:00 97.5 106 18 123/59 (80) 99 01/17/17 02:00 97 01/17/17 00:00 97.2 94 18 103/56 (72) 94 01/17/17 00:00 97 01/16/17 22:00 91 01/16/17 21:01 18 01/16/17 20:00 97.2 98 18 104/60 (75) 96 01/16/17 20:00 98 01/16/17 19:00 96 Nasal Cannula 2.00 01/16/17 19:00 96 Nasal Cannula 2.00 01/16/17 18:00 82 01/16/17 17:17 98.2 90 21 106/58 (74) 96 01/16/17 16:00 90 01/16/17 14:00 86 01/16/17 14:00 16 01/16/17 13:31 16 01/16/17 13:17 98.0 80 15 107/56 (73) 98 01/16/17 13:01 20 Result Diagram: 01/16/1739901/16/170 Objective Remarks Abdomen soft, nondistended, nontender Wound sites clean and dry NATACHA with small amount serosanguineous drainage Extremities well-perfused, nontender Medications and IVs Current Medications Medications (Trade) Dose Ordered Sig/Penny Route Start Time Stop Time Status Last Admin Sodium Chloride 1,000 ml @ 125 mls/hr Q8H IV 01/15/17 21:09 01/17/17 05:09 (NS Flush) 2 ml UNSCH PRN IV FLUSH 01/15/17 21:15 (NS Flush) 2 ml BID IV FLUSH 01/15/17 21:15 01/17/17 08:13 (Zofran Inj) 4 mg Q6H PRN IV PUSH 01/15/17 21:15 (Heparin Inj) 5,000 units Q12H SQ 01/16/17 20:00 01/17/17 08:12 (Narcan Inj) 0.4 mg UNSCH PRN IV PUSH 01/15/17 21:15 (Dilaudid DIRECTOR CAREER SERVICES Inj) 6 mg UNSCH IV 01/15/17 21:15 01/17/17 05:25 DIRECTOR CAREER SERVICES Dosage Infused (Pha) 1 Q8HR OTHER 01/15/17 22:00 01/17/17 05:30 (D50w (Vial) Inj) 50 ml UNSCH PRN IV PUSH 01/16/17 02:00 (Glucagon Inj) 1 mg UNSCH PRN OTHER 01/16/17 02:00 (NovoLOG SUPPLEMENTAL SCALE) 1 ACHS SLIDING SCALE SQ 01/16/17 08:00 01/17/17 08:00 (Percocet 5-325 Mg) 1 tab Q6H PRN PO 01/16/17 10:00 01/17/17 08:48 (Percocet 5-325 Mg) 2 tab Q6H PRN PO 01/16/17 10:00 01/17/17 10:00 Assessment and Plan Assessment and Plan Urologic impression: #1 status post robot-assisted laparoscopic radical nephrectomy #2 progressing well Plan: #1 DC NATACHA drain #2 regular ADA diet #3 encourage ambulation #4 discontinue DIRECTOR CAREER SERVICES #5 check pathology when available #6 probable discharge home tomorrow morning Chester Downey MD Jan 17, 2017 13:00
--- NOTE | 2017-01-17 13:07 | HHI.DS ---
Discharge Summary Admission Date Jan 15, 2017 at 10:39 Discharge Date: Jan 20, 2017 Admitting Diagnosis Renal cell carcinoma right kidney (1) Renal cell carcinoma of right kidney Diagnosis: Principal ICD Codes: C64.1 - Malignant neoplasm of right kidney, except renal pelvis Procedures Robot-assisted laparoscopic right radical nephrectomy Brief History 51-year-old gentleman with biopsy-proven right renal cell carcinoma who was admitted to undergo a robot-assisted laparoscopic radical nephrectomy. Please refer to admission history and physical were additional history and pertinent physical findings. CBC/BMP: 01/16/17 0400 01/16/17 0400 Significant Findings Laboratory Tests Test 01/15/17 18:56 01/15/17 19:55 01/15/17 21:35 01/16/17 04:00 White Blood Count 23.2 TH/MM3 (4.0-11.0) 13.3 TH/MM3 (4.0-11.0) Hemoglobin 12.4 GM/DL (13.0-17.0) 10.2 GM/DL (13.0-17.0) Hematocrit 38.3 % (39.0-51.0) 31.5 % (39.0-51.0) Neutrophils (%) (Auto) 86.2 % (16.0-70.0) 88.7 % (16.0-70.0) Neutrophils # (Auto) 20.0 TH/MM3 (1.8-7.7) 11.8 TH/MM3 (1.8-7.7) Blood Gas Base Excess -4.4 mmol/L (-2-2) -7.0 mmol/L (-2-2) -6.5 mmol/L (-2-2) Arterial Blood pH 7.23 (7.380-7.420) 7.25 (7.380-7.420) 7.32 (7.380-7.420) Arterial Blood Partial Pressure CO2 54 mmHg (38-42) 45 mmHg (38-42) 37 mmHg (38-42) Blood Gas HCO3 19 mmol/L (22-26) 19 mmol/L (22-26) Blood Gas Hemoglobin 11.1 G/DL (12.0-16.0) Red Blood Count 3.72 MIL/MM3 (4.50-5.90) Lymphocytes (%) (Auto) 5.5 % (9.0-44.0) Lymphocytes # (Auto) 0.7 TH/MM3 (1.0-4.8) Blood Urea Nitrogen 26 MG/DL (7-18) Creatinine 2.38 MG/DL (0.60-1.30) Random Glucose 333 MG/DL (74-106) Albumin 2.8 GM/DL (3.4-5.0) Calcium Level 7.0 MG/DL (8.5-10.1) Aspartate Amino Transf (AST/SGOT) 281 U/L (15-37) Alanine Aminotransferase (ALT/SGPT) 239 U/L (12-78) Sodium Level 134 MEQ/L (136-145) Potassium Level 5.2 MEQ/L (3.5-5.1) Estimat Glomerular Filtration Rate 29 ML/MIN (>89) Protein Corrected Calcium 7.3 MG/DL (8.5-10.1) Hospital Course Patient was admitted on January 15 of this year and underwent the surgical procedure outlined above without complications. Immediately postoperatively the patient was noted to be somewhat hypotensive however he did respond well to fluid resuscitation. He was admitted to the ICU for close monitoring due to the labile blood pressure. Remainder of his postoperative course was uneventful. By postop day #2 patient was an voiding well, tolerating oral intake and pain well managed and thus was transferred to the surgical floor. Patient continued to progress well on a daily basis. He was seen by medicine service and advised to hold off on the metformin. His blood pressure medication was also adjusted. He did have serosanguineous drainage from his NATACHA site for several days and by postop day #5 the drainage output was markedly reduced. Also by postop day #5 the patient was tolerating oral intake, ambulating well, pain well managed and his vital signs were stable. The decision was thus made to discharge the patient home. Pt Condition on Discharge: Good Discharge Disposition: Discharge Home Discharge Instructions DIET: Follow Instructions for: Diabetic Diet Activities you can perform: Shower Only-No Bath Activities to avoid: Strenuous Activity, Bathing Chester Downey MD Jan 17, 2017 13:07
[2017-01-17] MEDS ORDERED: PERC5TAB12 PO (13:08)
[2017-01-17] MEDS ORDERED: metFORMIN HCL 500 MG TAB PO SCH (18:00)
[2017-01-18 03:45] VITALS: BP 128/68; PULSE 94; RESP 18; TEMP 97.5; O2SAT 92
[2017-01-18] MEDS: oxyCODONE/ACETAMINOPHEN 5 MG/325 MG TAB PO PRN ×3 (05:58→18:11)
[2017-01-18 07:30] VITALS: BP 136/72; PULSE 90; RESP 18; TEMP 98.2; O2SAT 92
[2017-01-18] MEDS: SODIUM CHLORIDE 0.9% FLUSH 10 ML FLUSH IV FLUSH SCH ×2 (07:50→21:37)
[2017-01-18] MEDS: INSULIN ASPART SUPPLEMENTAL SCALE SQ SCH ×4 (07:50→21:36)
--- NOTE | 2017-01-18 09:34 | HHI.PR ---
Subjective Remarks in no acute distress. pain is fairly controlled. no fever. Objective Vitals Vital Signs Date Time Temp Pulse Resp B/P (MAP) Pulse Ox O2 Delivery O2 Flow Rate FiO2 01/18/17 07:30 98.2 90 18 136/72 (93) 92 01/18/17 03:45 97.5 94 18 128/68 (88) 92 01/17/17 23:45 97.3 94 17 118/64 (82) 92 01/17/17 20:00 98.6 106 18 124/75 (91) 94 01/17/17 18:24 18 01/17/17 15:52 97.8 105 18 103/63 (76) 92 I/O 01/17/17 01/17/17 01/17/17 01/18/17 01/18/17 01/18/17 07:00 15:00 23:00 07:00 15:00 23:00 Intake Total 1230 ml 480 ml 480 ml Balance 1230 ml 480 ml 480 ml Intake Oral 480 ml 480 ml 480 ml IV Total 750 ml # Voids 1 3 5 # Bowel Movements 0 1 0 Result Diagram: 01/16/17 0400 01/16/17 0400 Objective Remarks GENERAL: This is a well-nourished, well-developed patient, in no apparent distress. CARDIOVASCULAR: Regular rate and regular rhythm without murmurs, gallops, or rubs. RESPIRATORY: Clear to auscultation. Breath sounds equal bilaterally. No wheezes , rales, or rhonchi. GASTROINTESTINAL: Abdomen soft, non-tender, nondistended. Normal, active bowel sounds MUSCULOSKELETAL: Extremities without clubbing, cyanosis, or edema. NEURO: Alert & Oriented x4 to person, place, time, situation. Moves all ext x4 Medications and IVs Current Medications Lactated Ringer's 1,000 ml @ 30 mls/hr Q24H PRN IV SEE LABEL COMMENTS Last administered on 01/15/17t 11:49; Start 01/15/17 at 11:30; Stop 01/15/17 at 23:03 ; Status DC Sodium Chloride 500 ml @ 30 mls/hr [id number] PRN IV SEE LABEL COMMENTS; Start at 11:30; Stop 01/15/17 at 23:03; Status DC Metoprolol Tartrate (Lopressor) 25 mg STEM PROCESSING MACHINE OPERATOR PRN PO SEE LABEL COMMENTS; Start 01/15/17 at 11:30; Stop 01/15/17 at 23:03; Status DC Povidone Iodine (Betadine 5% Antisepsis Kit) 1 applic STEM PROCESSING MACHINE OPERATOR PRN EACH NARE SEE LABEL COMMENTS Last administered on 01/15/17 11:49; Start 01/15/17 at 11:30 ; Stop 01/15/17 at 23:03; Status DC Chlorhexidine Gluconate (Chlorhexidine 2% Cloth) 3 pack STEM PROCESSING MACHINE OPERATOR PRN TOPICAL SEE LABEL COMMENTS Last administered on 01/15/17 11:49; Start 01/15/17 at 11:30 ; Stop 01/15/17 at 23:03; Status DC Insulin Human Regular (NovoLIN R INJ) See Protocol Table ... STEM PROCESSING MACHINE OPERATOR PRN SQ SEE PROTOCOL TABLE; Start 01/15/17 at 11:30; Stop 01/15/17 at 23:03; Status DC Cefazolin Sodium/ Dextrose 50 ml @ 100 mls/hr STEM PROCESSING MACHINE OPERATOR IV Last administered on 01/15/17 12:15; Start 01/15/17 at 11:30; Stop 01/15/17 at 23:03; Status DC Furosemide (Lasix Inj) 40 mg STK-MED ONCE .ROUTE ; Start 01/15/17 at 12:23; Stop 01/15/17 at 12:24; Status DC Cefazolin Sodium (Ancef Inj) 1,000 mg STK-MED ONCE .ROUTE Last administered on 01/15/17 16:10; Start 01/15/17 at 13:40; Stop 01/15/17 at 13:41; Status DC Vecuronium [place] (Norcuron 20 Mg Inj) 40 mg STK-MED ONCE .ROUTE ; Start at 18:24; Stop 01/15/17 at 18:25; Status DC Phenylephrine HCl (Neosynephrine Inj) 40 mg STK-MED ONCE .ROUTE ; Start at 18:25; Stop 01/15/17 at 18:26; Status DC Sugammadex Sodium (Bridion Inj) 400 mg STK-MED ONCE IV PUSH ; Start 01/15/17 at 19:00; Stop 01/15/17 at 19:01; Status DC Albumin Human (Albumin 5% Inj) 12.5 gm STK-MED ONCE IV ; Start 01/15/17 at 20:25 ; Stop 01/15/17 at 20:26; Status DC Sodium Chloride 1,000 ml @ 125 mls/hr Q8H IV Last administered on 01/17/17 05 :09; Start 01/15/17 at 21:09; Stop 01/17/17 at 12:57; Status DC Sodium Chloride (NS Flush) 2 ml UNSCH PRN IV FLUSH FLUSH AFTER USING IV ACCESS ; Start 01/15/17 at 21:15 Sodium Chloride (NS Flush) 2 ml BID IV FLUSH Last administered on 01/18/17 07: 50; Start 01/15/17 at 21:15 Ondansetron HCl (Zofran Inj) 4 mg Q6H PRN IV PUSH NAUSEA; Start 01/15/17 at 21: 15 Miscellaneous Information (Post-op Orders (for Pharmacy)) STAT ONCE XX ; Start 01/15/17 at 21:15; Stop 01/15/17 at 21:35; Status DC Cefazolin Sodium 1000 mg/Sodium Chloride 100 ml @ 200 mls/hr Q8H IV Last administered on 01/16/17 18:21; Start 01/16/17 at 00:00; Stop 01/16/17 at 16:29 ; Status DC Heparin Sodium (Porcine) (Heparin Inj) 5,000 units Q12H SQ Last administered on 01/17/17 08:12; Start 01/16/17 at 20:00; Stop 01/17/17 at 12:57; Status DC Naloxone HCl (Narcan Inj) 0.4 mg UNSCH PRN IV PUSH SEE LABEL COMMENTS; Start at 21:15; Stop 01/15/17 at 23:03; Status DC Naloxone HCl (Narcan Inj) 0.4 mg UNSCH PRN IV PUSH RESPIRATORY RATE LESS THAN 10; Start 01/15/17 at 21:15; Stop 01/17/17 at 12:57; Status DC Hydromorphone HCl (Dilaudid MANAGER CAMP Inj) 6 mg UNSCH IV Last administered on 05:25; Start 01/15/17 at 21:15; Stop 01/17/17 at 12:57; Status DC MANAGER CAMP Dosage Infused (Pha) 1 Q8HR OTHER Last administered on 01/17/17 05:30; Start 01/15/17 at 22:00; Stop 01/17/17 at 12:57; Status DC Albuterol Sulfate (Albuterol Neb) 2.5 mg STK-MED ONCE .ROUTE Last administered on 01/15/17 21:26; Start 01/15/17 at 21:26; Stop 01/15/17 at 21:27; Status DC Miscellaneous Information ALL NURSING DEPARTME... UNSCH PRN .XX SEE LABEL COMMENTS; Start 01/15/17 at 22:15; Stop 01/16/17 at 22:14; Status DC Sodium Chloride 1,000 ml @ 0 mls/hr BOLUS ONCE IV ; Start 01/15/17 at 22:30; Stop 01/15/17 at 22:31; Status Cancel Tetracaine HCl (Tetracaine 0.5% Opth Soln) 1 drop ONCE ONCE LEFT EYE Last administered on 01/15/17 23:15; Start 01/15/17 at 23:15; Stop 01/15/17 at 23:16 ; Status DC Morphine Sulfate (*morphine INJ PERIprocedure ONLY) 8 mg STK-MED ONCE .ROUTE Last administered on 01/15/17 23:10; Start 01/15/17 at 23:09; Stop 01/15/17 at 23:10; Status DC Sodium Chloride 1,000 ml @ 999 mls/hr Q1H1M ONCE IV Last administered on 23:30; Start 01/15/17 at 23:30; Stop 01/16/17 at 00:30; Status DC Sodium Chloride 1,000 ml @ 999 mls/hr ONCE ONCE IV Last administered on 23:15; Start 01/16/17 at 01:15; Stop 01/16/17 at 02:15; Status DC Dextrose (D50w (Vial) Inj) 50 ml UNSCH PRN IV PUSH HYPOGLYCEMIA-SEE COMMENTS; Start 01/16/17 at 02:00 Glucagon (Glucagon Inj) 1 mg UNSCH PRN OTHER HYPOGLYCEMIA-SEE COMMENTS; Start 01/16/17 at 02:00 Insulin Aspart (NovoLOG SUPPLEMENTAL SCALE) 1 ACHS SLIDING SCALE SQ Last administered on 01/18/17 07:50; Start 01/16/17 at 08:00 Sodium Bicarbonate (Sodium Bicarbonate 8.4% Inj) 50 meq ONCE ONCE IV PUSH Last administered on 01/16/17 02:15; Start 01/16/17 at 02:15; Stop 01/16/17 at 02:16; Status DC Insulin Aspart (NovoLOG SUPPLEMENTAL SCALE) 20 STK-MED ONCE .ROUTE Last administered on 01/16/17 02:28; Start 01/16/17 at 02:28; Stop 01/16/17 at 02:29 ; Status DC Insulin Aspart (NovoLOG INJ) 20 units ONCE ONCE SQ ; Start 01/16/17 at 03:15; Stop 01/16/17 at 03:16; Status DC Oxycodone/ Acetaminophen (Percocet 5-325 Mg) 1 tab Q6H PRN PO PAIN SCALE 3 TO 5 Last administered on 01/17/17 08:48; Start 01/16/17 at 10:00 Oxycodone/ Acetaminophen (Percocet 5-325 Mg) 2 tab Q6H PRN PO PAIN SCALE 6 TO 10 Last administered on 01/18/17 05:58; Start 01/16/17 at 10:00 Tetracaine HCl (Pontocaine 0.5% Opht Soln) 40 drop STK-MED ONCE .ROUTE ; Start 01/15/17 at 22:59; Stop 01/16/17 at 14:04; Status DC Metformin HCl (Glucophage) 1,000 mg BIDPC PO ; Start 01/17/17 at 18:00; Status UNV A/P Assessment and Plan A/P Renal cell carcinoma - Status post nephrectomy - Further per urology Hypertension - Hypotensive postop - Hold home meds lisinopril, hydrochlorothiazide, spironolactone Hypotension-resolved - Postoperatively - H&H stable - Improved with and his boluses acute kidney injury- repeat renal function today. elevated LFT's - likely due to post-op hypotension repeat the levels today. Diabetes mellitus - Hold metformin while in the ICU - Insulin sliding scale-high dose -will consider resuming 70/30 soon. DVT GI prophylaxis - Teds SCDs - Subcutaneous heparin when ok with Urology. Sana Merlos MD Jan 18, 2017 09:34
--- NOTE | 2017-01-18 09:42 | HHI.PR ---
Subjective Patient symptoms today Postoperative day #3 Patient reports drainage from NATACHA site. Has been relating well. Has been tolerating oral intake well. Objective Vital Signs Vital Signs Date Time Temp Pulse Resp B/P (MAP) Pulse Ox O2 Delivery O2 Flow Rate FiO2 01/18/17 07:30 98.2 90 18 136/72 (93) 92 01/18/17 03:45 97.5 94 18 128/68 (88) 92 01/17/17 23:45 97.3 94 17 118/64 (82) 92 01/17/17 20:00 98.6 106 18 124/75 (91) 94 01/17/17 18:24 18 01/17/17 15:52 97.8 105 18 103/63 (76) 92 Intake & Output 01/18/17 01/18/17 07:00 19:00 Intake Total 960 ml Balance 960 ml Intake Oral 960 ml # Voids 8 # Bowel Movements 1 Result Diagram: 01/16/17 0400 01/16/17 0400 Other Results Pathology report consistent with renal cell carcinoma with negative surgical margins. [id number]. Objective Remarks Abdomen soft, nondistended, nontender Wound sites clean and dry [place] intact. NATACHA site dressing soaked with serosanguineous drainage Extremities well-perfused, nontender Medications and IVs Current Medications Medications (Trade) Dose Ordered Sig/Penny Route Start Time Stop Time Status Last Admin (NS Flush) 2 ml UNSCH PRN IV FLUSH 01/15/17 21:15 (NS Flush) 2 ml BID IV FLUSH 01/15/17 21:15 01/18/17 07:50 (Zofran Inj) 4 mg Q6H PRN IV PUSH 01/15/17 21:15 (D50w (Vial) Inj) 50 ml UNSCH PRN IV PUSH 01/16/17 02:00 (Glucagon Inj) 1 mg UNSCH PRN OTHER 01/16/17 02:00 (NovoLOG SUPPLEMENTAL SCALE) 1 ACHS SLIDING SCALE SQ 01/16/17 08:00 01/18/17 07:50 (Percocet 5-325 Mg) 1 tab Q6H PRN PO 01/16/17 10:00 01/17/17 08:48 (Percocet 5-325 Mg) 2 tab Q6H PRN PO 01/16/17 10:00 01/18/17 05:58 (Glucophage) 1,000 mg BIDPC PO 01/17/17 18:00 UNV Assessment and Plan Assessment and Plan Urologic impression: #1 status post robot-assisted laparoscopic radical nephrectomy #2 progressing well Plan: #1 continue with ADA diet #2 encourage ambulation #3 May shower this morning #4 continue local wound care at site #5 likely discharge tomorrow morning Chester Downey MD Jan 18, 2017 09:42
[2017-01-18 11:41] VITALS: BP 132/80; PULSE 95; RESP 18; TEMP 98.3; O2SAT 94
[2017-01-18 14:01] LABS: ALT (GPT) 204 U/L (12-78); ANION GAP 3 MEQ/L (5-15); AST (GOT) 137 U/L (15-37); BICARBONATE 30.1 MEQ/L (21.0-32.0); BLOOD UREA NITROGEN 25 MG/DL (7-18); CHLORIDE 100 MEQ/L (98-107); GLOMERULAR FILTRATION RATE 38 ML/MIN (>89); POTASSIUM 4.2 MEQ/L (3.5-5.1); SODIUM (NA) 133 MEQ/L (136-145)
[2017-01-18 14:07] LABS: ALKALINE PHOSPHATASE 134 U/L (45-117); TOTAL BILIRUBIN ADULT 0.5 MG/DL (0.2-1.0)
[2017-01-18 16:00] VITALS: BP 152/73; PULSE 100; RESP 18; TEMP 98.1; O2SAT 97
[2017-01-18 19:03] VITALS: BP 156/85; PULSE 95; RESP 18; TEMP 99; O2SAT 93
[2017-01-19] VITALS: BP 117/70; PULSE 92; RESP 16; TEMP 97.1; O2SAT 95
[2017-01-19] MEDS: oxyCODONE/ACETAMINOPHEN 5 MG/325 MG TAB PO PRN ×4 (00:21→18:32)
[2017-01-19 04:00] VITALS: BP 134/71; PULSE 87; RESP 16; TEMP 97.9; O2SAT 95
[2017-01-19 08:41] LABS: POTASSIUM 4.3 MEQ/L (3.5-5.1)
[2017-01-19 09:50] VITALS: BP 120/63; PULSE 88; RESP 20; TEMP 96; O2SAT 93
--- NOTE | 2017-01-19 09:56 | HHI.PR ---
Subjective Remarks in no acute distress. pain is fairly controlled. no new complaints. d/w the RN. Objective Vitals Vital Signs Date Time Temp Pulse Resp B/P (MAP) Pulse Ox O2 Delivery O2 Flow Rate FiO2 01/19/17 04:00 97.9 87 16 134/71 (92) 95 01/19/17 00:00 97.1 92 16 117/70 (86) 95 01/18/17 19:11 18 01/18/17 19:03 99.0 95 18 156/85 (108) 93 01/18/17 16:00 98.1 100 18 152/73 (99) 97 01/18/17 11:41 98.3 95 18 132/80 (97) 94 I/O 01/18/17 01/18/17 01/18/17 01/19/17 01/19/17 01/19/17 07:00 15:00 23:00 07:00 15:00 23:00 Intake Total 480 ml 960 ml 720 ml 480 ml Balance 480 ml 960 ml 720 ml 480 ml Intake Oral 480 ml 960 ml 720 ml 480 ml # Voids 5 4 2 3 # Bowel Movements 0 0 0 Result Diagram: 01/16/17 0400 01/19/17 0637 Objective Remarks GENERAL: This is a well-nourished, well-developed patient, in no apparent distress. CARDIOVASCULAR: Regular rate and regular rhythm without murmurs, gallops, or rubs. RESPIRATORY: Clear to auscultation. Breath sounds equal bilaterally. No wheezes , rales, or rhonchi. GASTROINTESTINAL: Abdomen soft, non-tender, nondistended. Normal, active bowel sounds MUSCULOSKELETAL: Extremities without clubbing, cyanosis, or edema. NEURO: Alert & Oriented x4 to person, place, time, situation. Moves all ext x4 Medications and IVs Current Medications Lactated Ringer's 1,000 ml @ 30 mls/hr Q24H PRN IV SEE LABEL COMMENTS Last administered on 01/15/17t 11:49; Start 01/15/17 at 11:30; Stop 01/15/17 at 23:03 ; Status DC Sodium Chloride 500 ml @ 30 mls/hr [id number] PRN IV SEE LABEL COMMENTS; Start at 11:30; Stop 01/15/17 at 23:03; Status DC Metoprolol Tartrate (Lopressor) 25 mg ACADEMIC AFFAIRS VICE PRESIDENT PRN PO SEE LABEL COMMENTS; Start 01/15/17 at 11:30; Stop 01/15/17 at 23:03; Status DC Povidone Iodine (Betadine 5% Antisepsis Kit) 1 applic ACADEMIC AFFAIRS VICE PRESIDENT PRN EACH NARE SEE LABEL COMMENTS Last administered on 01/15/17 11:49; Start 01/15/17 at 11:30 ; Stop 01/15/17 at 23:03; Status DC Chlorhexidine Gluconate (Chlorhexidine 2% Cloth) 3 pack ACADEMIC AFFAIRS VICE PRESIDENT PRN TOPICAL SEE LABEL COMMENTS Last administered on 01/15/17 11:49; Start 01/15/17 at 11:30 ; Stop 01/15/17 at 23:03; Status DC Insulin Human Regular (NovoLIN R INJ) See Protocol Table ... ACADEMIC AFFAIRS VICE PRESIDENT PRN SQ SEE PROTOCOL TABLE; Start 01/15/17 at 11:30; Stop 01/15/17 at 23:03; Status DC Cefazolin Sodium/ Dextrose 50 ml @ 100 mls/hr ACADEMIC AFFAIRS VICE PRESIDENT IV Last administered on 01/15/17 12:15; Start 01/15/17 at 11:30; Stop 01/15/17 at 23:03; Status DC Furosemide (Lasix Inj) 40 mg STK-MED ONCE .ROUTE ; Start 01/15/17 at 12:23; Stop 01/15/17 at 12:24; Status DC Cefazolin Sodium (Ancef Inj) 1,000 mg STK-MED ONCE .ROUTE Last administered on 01/15/17 16:10; Start 01/15/17 at 13:40; Stop 01/15/17 at 13:41; Status DC Vecuronium [place] (Norcuron 20 Mg Inj) 40 mg STK-MED ONCE .ROUTE ; Start at 18:24; Stop 01/15/17 at 18:25; Status DC Phenylephrine HCl (Neosynephrine Inj) 40 mg STK-MED ONCE .ROUTE ; Start at 18:25; Stop 01/15/17 at 18:26; Status DC Sugammadex Sodium (Bridion Inj) 400 mg STK-MED ONCE IV PUSH ; Start 01/15/17 at 19:00; Stop 01/15/17 at 19:01; Status DC Albumin Human (Albumin 5% Inj) 12.5 gm STK-MED ONCE IV ; Start 01/15/17 at 20:25 ; Stop 01/15/17 at 20:26; Status DC Sodium Chloride 1,000 ml @ 125 mls/hr Q8H IV Last administered on 01/17/17 05 :09; Start 01/15/17 at 21:09; Stop 01/17/17 at 12:57; Status DC Sodium Chloride (NS Flush) 2 ml UNSCH PRN IV FLUSH FLUSH AFTER USING IV ACCESS ; Start 01/15/17 at 21:15 Sodium Chloride (NS Flush) 2 ml BID IV FLUSH Last administered on 01/18/17 21: 37; Start 01/15/17 at 21:15 Ondansetron HCl (Zofran Inj) 4 mg Q6H PRN IV PUSH NAUSEA; Start 01/15/17 at 21: 15 Miscellaneous Information (Post-op Orders (for Pharmacy)) STAT ONCE XX ; Start 01/15/17 at 21:15; Stop 01/15/17 at 21:35; Status DC Cefazolin Sodium 1000 mg/Sodium Chloride 100 ml @ 200 mls/hr Q8H IV Last administered on 01/16/17 18:21; Start 01/16/17 at 00:00; Stop 01/16/17 at 16:29 ; Status DC Heparin Sodium (Porcine) (Heparin Inj) 5,000 units Q12H SQ Last administered on 01/17/17 08:12; Start 01/16/17 at 20:00; Stop 01/17/17 at 12:57; Status DC Naloxone HCl (Narcan Inj) 0.4 mg UNSCH PRN IV PUSH SEE LABEL COMMENTS; Start at 21:15; Stop 01/15/17 at 23:03; Status DC Naloxone HCl (Narcan Inj) 0.4 mg UNSCH PRN IV PUSH RESPIRATORY RATE LESS THAN 10; Start 01/15/17 at 21:15; Stop 01/17/17 at 12:57; Status DC Hydromorphone HCl (Dilaudid DENTAL APPLIANCE REPAIRER Inj) 6 mg UNSCH IV Last administered on 05:25; Start 01/15/17 at 21:15; Stop 01/17/17 at 12:57; Status DC DENTAL APPLIANCE REPAIRER Dosage Infused (Pha) 1 Q8HR OTHER Last administered on 01/17/17 05:30; Start 01/15/17 at 22:00; Stop 01/17/17 at 12:57; Status DC Albuterol Sulfate (Albuterol Neb) 2.5 mg STK-MED ONCE .ROUTE Last administered on 01/15/17 21:26; Start 01/15/17 at 21:26; Stop 01/15/17 at 21:27; Status DC Miscellaneous Information ALL NURSING DEPARTME... UNSCH PRN .XX SEE LABEL COMMENTS; Start 01/15/17 at 22:15; Stop 01/16/17 at 22:14; Status DC Sodium Chloride 1,000 ml @ 0 mls/hr BOLUS ONCE IV ; Start 01/15/17 at 22:30; Stop 01/15/17 at 22:31; Status Cancel Tetracaine HCl (Tetracaine 0.5% Opth Soln) 1 drop ONCE ONCE LEFT EYE Last administered on 01/15/17 23:15; Start 01/15/17 at 23:15; Stop 01/15/17 at 23:16 ; Status DC Morphine Sulfate (*morphine INJ PERIprocedure ONLY) 8 mg STK-MED ONCE .ROUTE Last administered on 01/15/17 23:10; Start 01/15/17 at 23:09; Stop 01/15/17 at 23:10; Status DC Sodium Chloride 1,000 ml @ 999 mls/hr Q1H1M ONCE IV Last administered on 23:30; Start 01/15/17 at 23:30; Stop 01/16/17 at 00:30; Status DC Sodium Chloride 1,000 ml @ 999 mls/hr ONCE ONCE IV Last administered on 23:15; Start 01/16/17 at 01:15; Stop 01/16/17 at 02:15; Status DC Dextrose (D50w (Vial) Inj) 50 ml UNSCH PRN IV PUSH HYPOGLYCEMIA-SEE COMMENTS; Start 01/16/17 at 02:00 Glucagon (Glucagon Inj) 1 mg UNSCH PRN OTHER HYPOGLYCEMIA-SEE COMMENTS; Start 01/16/17 at 02:00 Insulin Aspart (NovoLOG SUPPLEMENTAL SCALE) 1 ACHS SLIDING SCALE SQ Last administered on 9/29/17at 21:36; Start 01/16/17 at 08:00 Sodium Bicarbonate (Sodium Bicarbonate 8.4% Inj) 50 meq ONCE ONCE IV PUSH Last administered on 01/16/17 02:15; Start 01/16/17 at 02:15; Stop 01/16/17 at 02:16; Status DC Insulin Aspart (NovoLOG SUPPLEMENTAL SCALE) 20 STK-MED ONCE .ROUTE Last administered on 01/16/17 02:28; Start 01/16/17 at 02:28; Stop 01/16/17 at 02:29 ; Status DC Insulin Aspart (NovoLOG INJ) 20 units ONCE ONCE SQ ; Start 01/16/17 at 03:15; Stop 01/16/17 at 03:16; Status DC Oxycodone/ Acetaminophen (Percocet 5-325 Mg) 1 tab Q6H PRN PO PAIN SCALE 3 TO 5 Last administered on 01/19/17 06:45; Start 01/16/17 at 10:00 Oxycodone/ Acetaminophen (Percocet 5-325 Mg) 2 tab Q6H PRN PO PAIN SCALE 6 TO 10 Last administered on 01/19/17 00:21; Start 01/16/17 at 10:00 Tetracaine HCl (Pontocaine 0.5% Opht Soln) 40 drop STK-MED ONCE .ROUTE ; Start 01/15/17 at 22:59; Stop 01/16/17 at 14:04; Status DC Metformin HCl (Glucophage) 1,000 mg BIDPC PO ; Start 01/17/17 at 18:00; Status UNV A/P Assessment and Plan A/P Renal cell carcinoma - Status post nephrectomy - Further management per urology Hypertension - Hypotensive postop - Hold home meds lisinopril, hydrochlorothiazide, spironolactone Hypotension-resolved - Postoperatively - H&H stable acute kidney injury- improving. elevated LFT's - likely due to post-op hypotension-improved. Diabetes mellitus - Hold metformin . - Insulin sliding scale-high dose - will resume 70/30 soon upon discharge. DVT GI prophylaxis - Teds SCDs - Subcutaneous heparin when ok with Urology. Discharge Planning when ok with Urology. Sana Merlos MD Jan 19, 2017 09:56
[2017-01-19] MEDS ORDERED: LISI10TA3 PO (09:57)
[2017-01-19] MEDS: INSULIN ASPART SUPPLEMENTAL SCALE SQ SCH ×3 (09:58→22:47)
[2017-01-19] MEDS: SODIUM CHLORIDE 0.9% FLUSH 10 ML FLUSH IV FLUSH SCH ×2 (09:58→22:48)
--- NOTE | 2017-01-19 11:23 | HHI.PR ---
Subjective Patient symptoms today Postoperative day #4 Patient somewhat concerned about drainage from NATACHA site Tolerating oral intake well Ambulatory well Pain well managed Evaluated by medicine and cleared for discharge home Objective Vital Signs Vital Signs Date Time Temp Pulse Resp B/P (MAP) Pulse Ox O2 Delivery O2 Flow Rate FiO2 01/19/17 09:50 96.0 88 20 120/63 (82) 93 01/19/17 04:00 97.9 87 16 134/71 (92) 95 01/19/17 00:00 97.1 92 16 117/70 (86) 95 01/18/17 19:11 18 01/18/17 19:03 99.0 95 18 156/85 (108) 93 01/18/17 16:00 98.1 100 18 152/73 (99) 97 01/18/17 11:41 98.3 95 18 132/80 (97) 94 Intake & Output 01/19/17 01/19/17 07:00 19:00 Intake Total 1200 ml Balance 1200 ml Intake Oral 1200 ml # Voids 5 # Bowel Movements 0 Result Diagram: 01/16/17 0400 01/19/17 0637 Objective Remarks Abdomen soft, nondistended, nontender Wound sites clean and dry [place] intact. NATACHA site dressing soaked with serosanguineous drainage Extremities well-perfused, nontender Medications and IVs Current Medications Medications (Trade) Dose Ordered Sig/Penny Route Start Time Stop Time Status Last Admin (NS Flush) 2 ml UNSCH PRN IV FLUSH 01/15/17 21:15 (NS Flush) 2 ml BID IV FLUSH 01/15/17 21:15 01/19/17 09:58 (Zofran Inj) 4 mg Q6H PRN IV PUSH 01/15/17 21:15 (D50w (Vial) Inj) 50 ml UNSCH PRN IV PUSH 01/16/17 02:00 (Glucagon Inj) 1 mg UNSCH PRN OTHER 01/16/17 02:00 (NovoLOG SUPPLEMENTAL SCALE) 1 ACHS SLIDING SCALE SQ 01/16/17 08:00 01/19/17 09:58 (Percocet 5-325 Mg) 1 tab Q6H PRN PO 01/16/17 10:00 01/19/17 06:45 (Percocet 5-325 Mg) 2 tab Q6H PRN PO 01/16/17 10:00 01/19/17 00:21 (Glucophage) 1,000 mg BIDPC PO 01/17/17 18:00 UNV Assessment and Plan Assessment and Plan Urologic impression: #1 status post robot-assisted laparoscopic radical nephrectomy #2 progressing well Plan: #1 continue with ADA diet #2 encourage ambulation #3 medicine recommendations noted #4 continue local wound care at NATACHA site #5 likely discharge tomorrow morning if drainage from NATACHA site diminishes. Chester Downey MD Jan 19, 2017 11:23
[2017-01-19 13:30] VITALS: BP 150/80; PULSE 88; RESP 20; TEMP 98.7; O2SAT 95
[2017-01-19 16:33] VITALS: BP 143/80; PULSE 80; RESP 18; TEMP 96.4; O2SAT 94
[2017-01-19 20:00] VITALS: BP 154/83; PULSE 84; RESP 16; TEMP 97.6; O2SAT 95
[2017-01-20] VITALS: BP 146/81; PULSE 83; RESP 18; TEMP 98; O2SAT 94
[2017-01-20] MEDS: oxyCODONE/ACETAMINOPHEN 5 MG/325 MG TAB PO PRN ×3 (00:07→12:15)
[2017-01-20 04:00] VITALS: BP 124/69; PULSE 85; RESP 18; TEMP 97.2; O2SAT 94
[2017-01-20 07:06] VITALS: BP 143/89; PULSE 83; RESP 18; TEMP 97.5; O2SAT 94
[2017-01-20] MEDS: SODIUM CHLORIDE 0.9% FLUSH 10 ML FLUSH IV FLUSH SCH (09:09)
[2017-01-20] MEDS: INSULIN ASPART SUPPLEMENTAL SCALE SQ SCH ×2 (09:09→12:14)
[2017-01-20] MEDS ORDERED: MAGNESIUM HYDROXIDE SUSP 30 ML CUP PO PRN (10:45)
[2017-01-20] MEDS ORDERED: HYDROmorphone HCL PF 1 MG/ML VIAL IV PUSH PRN (10:45)
--- NOTE | 2017-01-20 10:45 | HHI.PR ---
Subjective Remarks Follow-up for renal cell carcinoma status post radical right nephrectomy. Patient is currently doing well. No chest pain, shortness of breath, fever or chills. He does complain of persistent pain from his right flank area. Objective Vitals Vital Signs Date Time Temp Pulse Resp B/P (MAP) Pulse Ox O2 Delivery O2 Flow Rate FiO2 01/20/17 07:06 97.5 83 18 143/89 (107) 94 01/20/17 04:00 97.2 85 18 124/69 (87) 94 01/20/17 00:00 98.0 83 18 146/81 (102) 94 01/19/17 20:00 97.6 84 16 154/83 (106) 95 01/19/17 16:33 96.4 80 18 143/80 (101) 94 01/19/17 13:30 98.7 88 20 150/80 (103) 95 I/O 01/19/17 01/19/17 01/19/17 01/20/17 01/20/17 01/20/17 07:00 15:00 23:00 07:00 15:00 23:00 Intake Total 480 ml 720 ml 240 ml Balance 480 ml 720 ml 240 ml Intake Oral 480 ml 720 ml 240 ml # Voids 3 6 2 # Bowel Movements 0 3 0 Result Diagram: 01/16/17 0400 01/19/17 0637 Objective Remarks GENERAL: Alert, oriented 3, NAD. SKIN: Warm and dry. HEAD: Normocephalic. EYES: No scleral icterus. No injection or drainage. NECK: Supple, trachea midline. No JVD or lymphadenopathy. CARDIOVASCULAR: Regular rate and rhythm without murmurs, gallops, or rubs. RESPIRATORY: Breath sounds equal bilaterally. No accessory muscle use. GASTROINTESTINAL: Abdomen soft, non-tender, nondistended. MUSCULOSKELETAL: No cyanosis, or edema. : Right sided LLQ abdominal area shows surgical incisions. BACK: Nontender without obvious deformity. Procedures 01/15/2017 Robot-assisted laparoscopic right radical nephrectomy A/P Problem List: (1) Renal cell carcinoma of right kidney ICD Code: C64.1 - Malignant neoplasm of right kidney, except renal pelvis Assessment and Plan Mr. Devi is a 51-year-old gentleman with history of diabetes type 2, hypertension, recently diagnosed with a renal mass confirming renal carcinoma, underwent robotic-assisted nephrectomy. Postoperatively in the PACU he was noticed to be hypotensive and was observed in the ICU. Patient was subsequently transferred to the med/surg floor. - Right sided renal cell carcinoma - s/p radical nephrectomy - Urology following closely. - Continue Percocet for pain. Will add Dilaudid IV for breakthrough pain. - Add milk of mag for constipation. - Hypertension - patient was hypertensive postoperatively. Currently blood pressure 143/89. - We will start low-dose amlodipine for blood pressure. Goal blood pressure < 130/80 - Acute kidney injury - creatinine is improved from 2.38 ---> 1.63. - Diabetes mellitus - Patient takes metformin 1000 mg twice a day at home. - His GFR is 44. At this point it would be safer to discontinue metformin for the time being. - If eGFR is improved about 45, patient is advised to start metformin again. - Would recommend BMP in 1 week with his primary care physician. - Continue sliding scale insulin. Patient can continue Insulin 70/30 on discharge. Full code. [email or web address]. Brea Marcus DO Jan 20, 2017 10:45
[2017-01-20] MEDS ORDERED: COLA100C PO (11:16)
[2017-01-20 11:42] VITALS: BP 158/76; PULSE 82; RESP 18; TEMP 96.7; O2SAT 99
[2017-01-28] MEDS ORDERED: PERC5TAB12 PO (14:36)
== END 2017-01-20 17:02 | disposition home or self-care (01) | DRG 657 ==
LOC: HSDI 10:39 → EDUNIT# 13:00 → HPAC 01-16 03:00 → N03A 01-16 06:31 → N06B 01-17 12:24
PROVIDERS: ADMIT Urology; ATTEND Urology
PROC: 8E0W4CZ Robotic Assisted Procedure of Trunk Region, Percutaneous Endoscopic Approach (ICD-10-PCS; 2017-01-15)
PROC: 0TT04ZZ Resection of Right Kidney, Percutaneous Endoscopic Approach (ICD-10-PCS; principal; 2017-01-15 13:08)
DX: C64.1 Malignant neoplasm of right kidney, except renal pelvis (principal); N17.9 Acute kidney failure, unspecified; I10 Essential (primary) hypertension; E11.9 Type 2 diabetes mellitus without complications; I95.81 Postprocedural hypotension; R79.89 Other specified abnormal findings of blood chemistry; K59.00 Constipation, unspecified; Z79.4 Long term (current) use of insulin
CPT/HCPCS: 80048; 80053; 82805; 82948; 83735; 84100; 85025; 86850; 86900; 86901; 86920; 88307; 94002; 94150; 94664; J0690; J1100; J1170; J1644; J1815; J1940; J2250; J2270; J2370; J3010; J7030; J7040; J7050; J7120; J7613; P9045